=== PATIENT | female | born 1980 | race Caucasian/White ===

== ENCOUNTER 2017-01-29 22:14 | Emergency (ER) | payer MEDICAID ==
[~2017-01-29] VITALS: Ht 157.5 cm; Wt 95.3 kg
[2017-01-29 22:21] VITALS: BP_SYST 141
[2017-01-29] MEDS ORDERED: KETOROLAC TROMETHAMINE 30 MG VIAL IM ONE (22:45)
[2017-01-29 23:20] VITALS: BP_SYST 138
== END 2017-01-29 23:20 | disposition home or self-care (01) ==
LOC: SED 22:14
DX: J32.9 Chronic sinusitis, unspecified (principal); B97.89 Other viral agents as the cause of diseases classified elsewhere; J45.909 Unspecified asthma, uncomplicated
CPT/HCPCS: 96372; 99283; J1885

== ENCOUNTER 2017-11-30 09:00 | Emergency (ER) | payer OTHER, MEDICAID ==
[~2017-11-30] VITALS: Ht 157.5 cm; Wt 81.6 kg
[2017-11-30 09:10] VITALS: BP_SYST 138
[2017-11-30 10:03] VITALS: BP_SYST 132
== END 2017-11-30 10:03 | disposition home or self-care (01) ==
LOC: SED 09:00
DX: R00.2 Palpitations (principal); R11.0 Nausea; J45.909 Unspecified asthma, uncomplicated
CPT/HCPCS: 93005; 99283